=== PATIENT | female | born 1995 | race Caucasian/White ===

== ENCOUNTER 2018-12-05 17:47 | Emergency (ER) | payer OTHER ==
[~2018-12-05] VITALS: Ht 152.4 cm; Wt 68.0 kg
[2018-12-05] MEDS ORDERED: NS IV 1000 ML 0 ML ONE (17:49)
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
[2018-12-05] MEDS ORDERED: predniSONE 20 MG TAB PO ONE (18:15)
[2018-12-05] MEDS ORDERED: diphenhydrAMINE 25 MG TAB (BENADRYL) PO ONE (18:15)
[2018-12-05] MEDS ORDERED: IBUPROFEN TABLET 200 MG TAB PO ONE (18:15)
[2018-12-05] MEDS ORDERED: NEO/5DRO3 OP (18:23)
--- NOTE | 2018-12-05 18:30 | NUR ---
Vision tested with Snellen Chart. Vision in unaffected left eye is 20/100 and R eye is 20/30. Patient states she normally wears glasses but does not have them with her.
[2018-12-05 18:39] VITALS: BP 122/81
== END 2018-12-05 18:39 | disposition home or self-care (01) ==
LOC: ER FS 17:49
DX: T26.61XA Corrosion of cornea and conjunctival sac, right eye, initial encounter (principal); T28.5XXA Corrosion of mouth and pharynx, initial encounter; T20.46XA Corrosion of unspecified degree of forehead and cheek, initial encounter
CPT/HCPCS: 99283

== ENCOUNTER 2021-10-23 17:50 | Emergency (ER) | payer SELFPAY ==
[~2021-10-23] VITALS: Ht 152.4 cm; Wt 104.2 kg
[~2021-10-23 17:50] MED LIST: NEO/5DRO3 OP
[2021-10-23] MEDS ORDERED: NS IV 1000 ML 1,000 ML IV SCH (18:15)
[2021-10-23] MEDS ORDERED: ONDANSETRON 4 MG/2 ML (SDV) Z0FRAN IV ONE (18:15)
[2021-10-23 18:18] LABS: BILIRUBIN,URINE NEGATIVE (NEGATIVE); COLOR,URINE YELLOW; GLUCOSE, URINE (UA) NEGATIVE (NEGATIVE); KETONES,URINE NEGATIVE (NEGATIVE); LEUKOCYTE ESTERASE ,URINE TRACE (NEGATIVE); NITRITE,URINE NEGATIVE (NEGATIVE); PH,URINE 5.5 (5-9); PROTEIN,URINE 2+ (NEGATIVE)
[2021-10-23 18:21] LABS: BACTERIA,URINE LARGE /HPF; CLARITY,URINE SLIGHTLY CLOUDY; WBC,URINE 25-50 /HPF
[2021-10-23 18:29] LABS: AMPHETAMINE SCREEN, URINE NEGATIVE (NEGATIVE); BARBITURATE SCREEN URINE NEGATIVE (NEGATIVE); BENZODIAZEPINES SCREEN URINE NEGATIVE (NEGATIVE); CANNABINOID SCREEN, URINE NEGATIVE (NEGATIVE); COCAINE SCREEN URINE NEGATIVE (NEGATIVE); METHADONE STAT NEGATIVE (NEGATIVE); OPIATE SCREEN URINE NEGATIVE (NEGATIVE); OXYCODONE STAT NEGATIVE (NEGATIVE); PROPOXYPHENE STAT NEGATIVE (NEGATIVE); TRICYCLIC ANTIDEPRESSANTS SCRE NEGATIVE (NEGATIVE)
[2021-10-23 18:40] LABS: BASOPHILS % (AUTO) 0 % (0-10); EOSINOPHILS # (AUTO) 0.1 10^3/uL (0.0-0.3); EOSINOPHILS % (AUTO) 1 % (0-10); HEMATOCRIT 39 % (35-52); HEMOGLOBIN 13.2 g/dL (11.5-16.0); LYMPHOCYTES # (AUTO) 1.6 10^3/uL (1.0-4.0); LYMPHOCYTES % (AUTO) 24 % (12-44); MEAN CORPUSCULAR HEMOGLOBIN 26 pg (25-34); MEAN CORPUSCULAR HGB CONC 34 g/dL (32-36); MEAN CORPUSCULAR VOLUME 75 fL (80-99); MONOCYTES # (AUTO) 0.9 10^3/uL (0.0-1.0); MONOCYTES % (AUTO) 13 % (0-12); NEUTROPHILS % (AUTO) 61 % (42-75); PLATELET COUNT 250 10^3/uL (130-400); WHITE BLOOD COUNT 6.6 10^3/uL (4.3-11.0)
--- NOTE | 2021-10-23 18:51 | ED General ---
General Chief Complaint: Cough/Cold/Flu Symptoms Stated Complaint: COUGH/CONGESTION/HEADACHE/VOMITING/SORE THROAT Source of Information: Patient History of Present Illness Date Seen by Provider: October 23, 2021 Time Seen by Provider: 18:44 Initial Comments 26-year-old female presenting with complaints of cough, congestion, sinus pressure, sinus headache, sore throat, vomiting after coughing. She has had some subjective fever and chills. She was feeling dizzy and lightheaded with the vomiting and coughing. She states she has a history of asthma but has not noticed wheezing and has not been using her inhaler. She denies any ill contacts. As she was coughing to the point that she was throwing up and not keeping things down and she came to the emergency department to be evaluated. Timing/Duration: 2-3 Days Severity: Severe Modifying Factors: worse with Movement Associated Systoms: No Chest Pain; Cough; No Diaphoresis; Headaches (Sinus); No Loss of Appetite, No Malaise; Nausea/Vomiting (Posttussive); No Seizure; Shortness of Air (With coughing); No Syncope; Weakness (Generalized) Allergies and Home Medications Allergies Coded Allergies: No Known Drug Allergies (Unverified , 12/05/18) Patient Home Medication List Home Medication List Reviewed: Yes Benzonatate (Benzonatate) 200 Mg Capsule, 200 MG PO TID PRN for COUGH Prescribed by: MARIE OSBORNE on 10/23/212050 Guaifenesin/Codeine Phosphate (Codeine-Guaifen 10-100 mg/5 ml) 10 Mg-100 Mg/5 Ml Liquid, 5 ML PO Q6H PRN for COUGH Prescribed by: MARIE OSBORNE on 10/23/212051 Jack/Polymyx B Sulf/Dexameth (Maxitrol Eye Drops) 5 Ml Drops.susp, 1 DROP OP Q3H PRN for EYE REDNESS/PAIN Prescribed by: TINY HUDDLESTON on 12/05/181822 Prednisone (Prednisone) 20 Mg Tab, 40 MG PO DAILY Prescribed by: MARIE OSBORNE on 10/23/212050 Review of Systems Review of Systems Constitutional: chills, fever (Subjective) EENTM: nose congestion; No ear discharge, No hearing loss, No ear pain, No mouth pain, No epistaxis, No throat pain Respiratory: cough; No short of breath, No stridor, No wheezing Cardiovascular: No chest pain, No edema Gastrointestinal: No abdominal pain; vomiting (Posttussive) Genitourinary: decreased output; No dysuria Musculoskeletal: no symptoms reported Skin: No rash Psychiatric/Neurological: See HPI Past Wyqoxvi-Tvjurw-Xgxvzo Hx Patient Social History Tobacco Use?: Yes Tobacco type used: Cigarettes Smoking Status: Current Someday Smoker Use of E-Cig and/or Vaping dev: No Substance use?: No Alcohol Use?: No Seasonal Allergies Seasonal Allergies: No Past Medical History Surgery/Hospitalization HX: Asthma Surgeries: No Respiratory: Yes Asthma Cardiac: No Neurological: No Genitourinary: No Gastrointestinal: No Musculoskeletal: No Endocrine: No HEENT: No Cancer: No Psychosocial: No Integumentary: No Blood Disorders: No Adverse Reaction/Blood Tranf: No Physical Exam Vital Signs Vital Signs - First Documented Capillary Refill : Height, Weight, BMI Height: 5'0" Weight: 150lbs. oz. 68.221634kk; BMI Method:Stated General Appearance: Anxious, Moderate Distress HEENT: PERRL/EOMI, TMs Normal; No Moist Mucous Membranes (Dry mucous membranes) Neck: Full Range of Motion, Normal Inspection, Non Tender, Supple Respiratory: Chest Non Tender, Lungs Clear, Normal Breath Sounds, No Accessory Muscle Use, No Respiratory Distress Cardiovascular: No Edema, Normal Peripheral Pulses, Tachycardia Gastrointestinal: Normal Bowel Sounds, No Pulsatile Mass, Non Tender, Soft Extremity: Normal Capillary Refill, Normal Inspection, No Pedal Edema Neurologic/Psychiatric: Alert, Oriented x3, casing fluid tender II-XII Norm as Tested Skin: Normal Color, Warm/Dry Focused Exam Lactate Level 10/23/21 19:00: Lactic Acid Level 0.74 Lactic Acid Level Laboratory Tests Test 10/23/21 19:00 Lactic Acid Level 0.74 MMOL/L (0.50-2.00) Progress/Results/Core Measures Suspected Sepsis SIRS Temperature: Pulse: Respiratory Rate: Laboratory Tests 10/23/21 18:34: White Blood Count 6.6 Blood Pressure / Mean: 10/23/21 19:00: Lactic Acid Level 0.74 Laboratory Tests 10/23/21 18:34: Creatinine 0.52L, Platelet Count 250, Total Bilirubin 0.3 Results/Orders Lab Results Laboratory Tests Test 10/23/21 18:01 10/23/21 18:16 10/23/21 18:34 10/23/21 19:00 Range/Units Urine Color YELLOW Urine Clarity SLIGHTLY CLOUDY Urine pH 5.5 5-9 Urine Specific [place] >=1.030 1.016-1.022 Urine Protein 2+ H NEGATIVE Urine Glucose (UA) NEGATIVE NEGATIVE Urine Ketones NEGATIVE NEGATIVE Urine Nitrite NEGATIVE NEGATIVE Urine Bilirubin NEGATIVE NEGATIVE Urine Urobilinogen 0.2 < = 1.0 MG/DL Urine Leukocyte Esterase TRACE H NEGATIVE Urine RBC (Auto) TRACE-I H NEGATIVE Urine RBC 2-5 H /HPF Urine WBC 25-50 H /HPF Urine Squamous Epithelial Cells 10-25 H /HPF Urine Crystals NONE /LPF Urine Bacteria LARGE H /HPF Urine Casts NONE /LPF Urine Mucus LARGE H /LPF Urine Culture Indicated NO Urine Opiates Screen NEGATIVE NEGATIVE Urine Oxycodone Screen NEGATIVE NEGATIVE Urine Methadone Screen NEGATIVE NEGATIVE Urine Propoxyphene Screen NEGATIVE NEGATIVE Urine Barbiturates Screen NEGATIVE NEGATIVE Ur Tricyclic Antidepressants Screen NEGATIVE NEGATIVE Urine Phencyclidine Screen NEGATIVE NEGATIVE Urine Amphetamines Screen NEGATIVE NEGATIVE Urine Methamphetamines Screen NEGATIVE NEGATIVE Urine Benzodiazepines Screen NEGATIVE NEGATIVE Urine Cocaine Screen NEGATIVE NEGATIVE Urine Cannabinoids Screen NEGATIVE NEGATIVE Influenza Type A Antigen NEGATIVE NEGATIVE Influenza Type B Antigen NEGATIVE NEGATIVE SARS-CoV-2 RNA (RT-PCR) Detected H Not Detecte Group A Streptococcus Screen NEGATIVE NEGATIVE White Blood Count 6.6 4.3-11.0 10^3/uL Red Blood Count 5.11 3.80-5.11 10^6/uL Hemoglobin 13.2 11.5-16.0 g/dL Hematocrit 39 35-52 % Mean Corpuscular Volume 75 L 80-99 fL Mean Corpuscular Hemoglobin 26 25-34 pg Mean Corpuscular Hemoglobin Concent 34 32-36 g/dL Red Cell Distribution Width 13.0 10.0-14.5 % Platelet Count 250 130-400 10^3/uL Mean Platelet Volume 10.0 9.0-12.2 fL Immature Granulocyte % (Auto) 0 % Neutrophils (%) (Auto) 61 42-75 % Lymphocytes (%) (Auto) 24 12-44 % Monocytes (%) (Auto) 13 H 0-12 % Eosinophils (%) (Auto) 1 0-10 % Basophils (%) (Auto) 0 0-10 % Neutrophils # (Auto) 4.0 1.8-7.8 10^3/uL Lymphocytes # (Auto) 1.6 1.0-4.0 10^3/uL Monocytes # (Auto) 0.9 0.0-1.0 10^3/uL Eosinophils # (Auto) 0.1 0.0-0.3 10^3/uL Basophils # (Auto) 0.0 0.0-0.1 10^3/uL Immature Granulocyte # (Auto) 0.0 0.0-0.1 10^3/uL Sodium Level 136 135-145 MMOL/L Potassium Level 4.1 3.6-5.0 MMOL/L Chloride Level 105 98-107 MMOL/L Carbon Dioxide Level 17 L 21-32 MMOL/L Anion Gap 14 5-14 MMOL/L Blood Urea Nitrogen 9 7-18 MG/DL Creatinine 0.52 L 0.60-1.30 MG/DL Estimat Glomerular Filtration Rate 133 BUN/Creatinine Ratio 17 Glucose Level 95 70-105 MG/DL Calcium Level 9.1 8.5-10.1 MG/DL Corrected Calcium 8.9 8.5-10.1 MG/DL Total Bilirubin 0.3 0.1-1.0 MG/DL Aspartate Amino Transf (AST/SGOT) 20 5-34 U/L Alanine Aminotransferase (ALT/SGPT) 15 0-55 U/L Alkaline Phosphatase 78 40-136 U/L Troponin I < 0.30 <0.30 NG/ML C-Reactive Protein 3.00 H <0.50 MG/DL Total Protein 7.6 6.4-8.2 GM/DL Albumin 4.2 3.2-4.5 GM/DL Lipase 18 8-78 U/L Lactic Acid Level 0.74 0.50-2.00 MMOL/L My Orders Orders - MARIE OSBORNE MD Monitor-Rhythm Ecg Trace Only (10/23/21 18:10) Ed Iv/Invasive Line Start (10/23/21 18:10) Urine Bedside (10/23/21 18:10) Cbc With Automated Diff (10/23/21 18:10) Comprehensive Metabolic Panel (10/23/21 18:10) Crp Fs (10/23/21 18:10) Troponin I Fs (10/23/21 18:10) Protime With Inr (10/23/21 18:10) Partial Thromboplastin Time (10/23/21 18:10) Ekg Tracing (10/23/21 18:10) Ns Iv 1000 Ml (Sodium Chloride 0.9%) (10/23/21 18:15) Ondansetron Injection (Zofran Injectio (10/23/21 18:15) Lipase (10/23/21 18:10) Ua Culture If Indicated (10/23/21 18:10) Drug Screen Stat (Urine) (10/23/21 18:10) Covid 19 Inhouse Test (10/23/21 18:10) Influenza A & B Antigens (10/23/21 18:10) Rapid Strep A Screen (10/23/21 18:15) Blood Culture (10/23/21 18:15) Lactic Acid Analyzer (10/23/21 18:15) Chest 1 View Ap/Pa Only (10/23/21 18:51) Urine Bedside (10/23/21 18:56) Benzonatate Capsule (Tessalon Perles) (10/23/21 20:32) Methylprednisolone Sod Succ (Solu-Medrol (10/23/21 20:32) Nursing Communication (Order) (10/23/21 20:33) Medications Given in ED Current Medications Medications Dose Ordered Sig/Kim Route Start Time Stop Time Status Last Admin Dose Admin Ondansetron HCl 4 mg ONCE ONCE IV 10/23/21 18:15 10/23/21 18:16 DC 10/23/21 18:57 4 MG Vital Signs/I&O 10/23/21 10/23/21 10/23/21 18:02 18:02 20:44 Temp 37.4 Pulse 125 105 Resp 20 16 B/P (MAP) 125/91 (102) 116/98 Pulse Ox 98 98 O2 Delivery Room Air Room Air Room Air Capillary Refill : Progress Note #1: Progress Note Check labs and urinalysis. Give IV fluids normal saline 1 L bolus for hydration. Zofran 4 mg IV for nausea. Obtain chest x-ray to look for pneumonia and swabs to evaluate for COVID and influenza. Rapid strep swab also sent. Progress Note #2: Progress Note Show acute significant changes. Her chemistry did not show acute significant changes. Her urinalysis was concentrated with elevated specific gravity. Discussed results with the patient and will have her use a spacer with her inhaler to try and get more medicine in her lungs. Have her take [id number] Delsym and Mucinex to help with her congestion and cough. Prescribed Tessalon Perles and Phenergan with codeine for helping with her cough. Encourage fluids and hydration. As her chest x-ray was not showing any acute infiltrate we will continue with symptomatic treatment and the cough may be secondary to inflammation in her lungs as well as drainage from her sinuses. Administer 125 mg of Solu-Medrol here to help with the asthma and breathing. Continue 4 more days of prednisone. Counseled on prescriptions and medications as well as follow-up and return precautions ECG Initial ECG Impression Date: October 23, 2021 Initial ECG Impression Time: 19:22 Initial ECG Rate: 104 Initial ECG Rhythm: S.Tach Initial ECG Comparisson: No Previous ECG Available Comment Sinus tachycardia with a heart rate of 104 bpm. [place] interval [address] elevation. QT interval 315 ms with a QTc interval 375 ms. There is no prior tracing for comparison. Diagnostic Imaging Diagonstic Imaging: Xray Plain Films/CT/US/NM/MRI: chest Comments [facility]. [place], [place] NAME: MARYAN MAYBERRY [facility] REC#: [id number] PT STATUS: REG ER : 1995 PHYSICIAN: MARIE OSBORNE MD ADMIT DATE: 10/23/21/ER FS Signed Date of Exam:10/23/21 CHEST 1 VIEW AP/PA ONLY EXAMINATION: Chest 1 view. HISTORY: Cough. COMPARISON: None available. FINDINGS: Heart size and pulmonary vasculature are normal. The lungs are clear without consolidation, pleural effusion or pneumothorax. The osseous structures are intact. IMPRESSION: No acute radiographic abnormality in the chest. Dictated by: Dictated on workstation # [id number] Dict: 10/23/211899 Trans: 10/23/211906 [facility] [id number] Interpreted by: BOSSMAN ODELL DO Electronically signed by: BOSSMAN ODELL DO 10/23/211906 Reviewed: Reviewed by Me Departure Impression Primary Impression: Upper respiratory infection with cough and congestion Additional Impressions: Sinus drainage Post-tussive vomiting Dehydration Disposition: 01 HOME, SELF-CARE Condition: Stable Departure-Patient Inst. Decision time for Depature: 20:47 Referrals: NO,LOCAL PHYSICIAN (PCP) Primary Care Physician [facility] [phone] call to arrange follow up with clinic or see provider of your choice Patient Instructions: Upper Respiratory Infection ED, Nausea and Vomiting, Adult ED, Dehydration, Adult ED, Sinusitis, Adult ED, Cough, Adult ED Add. Discharge Instructions: [id number] you can try taking Delsym for the cough. You may also try taking Mucinex to help with the sinus drainage and loosen your cough and congestion. Make sure you are drinking plenty of fluids and staying well-hydrated. The steroid should help with your cough and with the asthma. Use the spacer with your inhaler to help it work better. Try using the cough pills to help decrease your cough. If not improving consider taking the prescription cough syrup. Check back through the clinic for continued concerns or if not improving. All discharge instructions reviewed with patient and/or family. Voiced underst anding. Scripts Guaifenesin/Codeine Phosphate (Codeine-Guaifen 10-100 mg/5 ml) 10 Mg-100 Mg/5 Ml Liquid 5 ML PO Q6H PRN for COUGH for 5 Days, #100 ML 0 Refills Prov: MARIE OSBORNE MD 10/23/21 Benzonatate (Benzonatate) 200 Mg Capsule 200 MG PO TID PRN for COUGH for 7 Days, #21 CAP 0 Refills Prov: MARIE OSBORNE MD 10/23/21 Prednisone (Prednisone) 20 Mg Tab 40 MG PO DAILY for cough/sinusitis for 4 Days, #8 TAB 0 Refills Prov: MARIE OSBORNE MD 10/23/21 MARIE OSBORNE MD October 23, 2021 18:50
[2021-10-23 18:57] LABS: ALANINE AMINOTRANSFERASE 15 U/L (0-55); ALBUMIN 4.2 GM/DL (3.2-4.5); ALKALINE PHOSPHATASE 78 U/L (40-136); BILIRUBIN,TOTAL 0.3 MG/DL (0.1-1.0); BUN/CREATININE RATIO 17; CALCIUM 9.1 MG/DL (8.5-10.1); CARBON DIOXIDE 17 MMOL/L (21-32); CHLORIDE 105 MMOL/L (98-107); CREATININE SERUM 0.52 MG/DL (0.60-1.30); GFR ESTIMATED 133; GLUCOSE 95 MG/DL (70-105); POTASSIUM 4.1 MMOL/L (3.6-5.0); SODIUM 136 MMOL/L (135-145); TOTAL PROTEIN 7.6 GM/DL (6.4-8.2)
--- NOTE | 2021-10-23 19:02 | Diagnostic Imaging Report ---
EXAMINATION: Chest 1 view. HISTORY: Cough. COMPARISON: None available. FINDINGS: Heart size and pulmonary vasculature are normal. The lungs are clear without consolidation, pleural effusion or pneumothorax. The osseous structures are intact. IMPRESSION: No acute radiographic abnormality in the chest. Dictated by: Dictated on workstation # [id number]
[2021-10-23] MEDS ORDERED: BENZONATATE 100 MG (TESSALON) CAPSULE PO STA (20:32)
[2021-10-23] MEDS ORDERED: methylPREDNISolone 125 MG (Solu-MEDROL) VIAL IVP STA (20:32)
[2021-10-23 20:44] VITALS: BP 116/98
[2021-10-23] MEDS ORDERED: PRD20T PO (20:51)
[2021-10-23] MEDS ORDERED: GUAI120L56 PO (20:51)
[2021-10-23] MEDS ORDERED: BENZ200C51 PO (20:51)
== END 2021-10-23 20:54 | disposition home or self-care (01) ==
LOC: EDUNIT# 17:50 → ER FS 17:55
DX: J06.9 Acute upper respiratory infection, unspecified (principal); E86.0 Dehydration; R11.10 Vomiting, unspecified; J45.909 Unspecified asthma, uncomplicated; F17.210 Nicotine dependence, cigarettes, uncomplicated; Z20.822 Contact with and (suspected) exposure to COVID-19
CPT/HCPCS: 71045; 80053; 80306; 81000; 83605; 83690; 84484; 84703; 86141; 87040; 87430; 87636; 87804; 93005; 93041